=== PATIENT | male | born 1985 | race Caucasian/White ===

== ENCOUNTER 2020-12-19 19:01 | Emergency (ER) | payer BC, SELFPAY ==
[2020-12-19 19:10] VITALS: BP 146/84; PULSE 79; RESP 18; TEMP 36.8; O2SAT 99
--- NOTE | 2020-12-19 19:17 | CTR_ITS ---
PROCEDURE INFORMATION: Exam: CT Abdomen And Pelvis Without Contrast Exam date and time: 12/19/2020 7:17 PM Age: 35 years old Clinical indication: Abdominal pain; Left; Patient HX: C/O L flank pain has HX of stones; Additional info: Left flank pain TECHNIQUE: Imaging protocol: Computed tomography of the abdomen and pelvis without contrast. Radiation optimization: All CT scans at this facility use at least one of these dose optimization techniques: automated exposure control; mA and/or kV adjustment per patient size (includes targeted exams where dose is matched to clinical indication); or iterative reconstruction. COMPARISON: No relevant prior studies available. RADIATION DOSE METRICS: Total DLP (mGy-cm): 451.38 FINDINGS: Liver: Normal. No mass. Gallbladder and bile ducts: Normal. No calcified stones. No ductal dilation. Pancreas: Normal. No ductal dilation. Spleen: Normal. No splenomegaly. Adrenal glands: Normal. No mass. Kidneys and ureters: There is a 2 mm obstructing stone in the left UVJ, resulting in mild hydronephrosis and stranding of the surrounding fat. There is an additional nonobstructing 0.4 cm stone in the left mid kidney. There is also a 0.4 cm rounded density in the left mid kidney, which is too small to characterize, and may represent a complex cyst with proteinaceous/hemorrhagic products. The right kidney is unremarkable. Stomach and bowel: Unremarkable. No obstruction. No mucosal thickening. Appendix: No evidence of appendicitis. Intraperitoneal space: Unremarkable. No free air. No significant fluid collection. Vasculature: Unremarkable. No abdominal aortic aneurysm. Lymph nodes: Unremarkable. No enlarged lymph nodes. Urinary bladder: Unremarkable as visualized. Reproductive: Unremarkable as visualized. Bones/joints: Unremarkable. No acute fracture. Soft tissues: Unremarkable. CT/CT kidney stone 81506 IMPRESSION: Left UVJ obstructing stone, resulting in mild hydronephrosis. COMMENTS: Consistent with the [employer]'s Incidental Findings Committee white paper (J Am Theo Radiol 2018): Any incidental renal lesion less than 1 cm or classified as too small to characterize, or any incidental cystic renal lesion characterized as simple-appearing, is likely benign. No follow-up imaging is recommended for these lesions per consensus recommendations based on imaging criteria. Radiation Dose CTDIVOL = (mGy): DLP = 451.38 (mGy-cm)
--- NOTE | 2020-12-19 19:18 | ED_ITS ---
HPI - Back Pain/Injury General: Chief Complaint: Back Pain/Injury Stated Complaint: Lower Back Pain Time Seen by Provider: 12/19/20 19:16 History of Present Illness: HPI Narrative: 35-year-old male patient comes in with left flank pain. Patient reports some pain waxing and waning for about a week or 2 then today started having some more severe pain. Patient did report emesis at one time. Patient does have a history of renal stones. Last time he passed a stone was about 5 years ago. Patient denies any other chronic medical problems. Review of Systems General: Reports: 10 or more systems reviewed and unremarkable except in HPI and below : Reports: flank pain Physical Exam Const: COMMON NORMALS: no acute distress and patient oriented x3 GENERAL APPEARANCE: cooperative HENMT: COMMON NORMALS: normocephalic and Normal external nose present HEAD & SCALP: normal to inspection and normocephalic NOSE: Normal external nose present MOUTH: Normal oral and palatal mucosa present Eye: GENERAL EYE: appearance normal, both eyes and all related structures Neck/C-Spine: COMMON NORMALS: full ROM Chest: COMMONS NORMALS: normal inspection of the chest Resp: COMMON NORMALS: normal respiratory effort EFFORT & INSPECTION: Yes able to speak in complete sentences Cardio: COMMON NORMALS: regular rate and regular rhythm RATE: regular rate RHYTHM: regular rhythm GI: COMMON NORMALS: Soft to palpation PALPATION: Yes Soft to palpation and Yes Tenderness to palpation present (GI) Details: LUQ : BLADDER/KIDNEY EXAM: Yes CVA tenderness on the left Back/Pelvis: COMMON NORMALS: thoracic and lumbar spine normal to inspection GENERAL BACK: Yes CVA tenderness Extremity: COMMON NORMALS: normal to inspection Neuro: COMMON NORMALS: patient oriented x3 and moves all extremities Psych: COMMON NORMALS: mental status grossly normal and cooperative Skin: COMMON NORMALS: no rashes or lesions noted GENERAL SKIN EXAM: no rashes or lesions noted Course Vital Signs: Vital signs: Vital Signs Temperature 98.3 F 12/19/20 19:10 Pulse Rate 79 12/19/20 19:10 Respiratory Rate 18 12/19/20 19:10 Blood Pressure 146/84 12/19/20 19:10 Pulse Oximetry 99 12/19/20 19:43 MDM - Back Pain/Injury MDM Narrative: Medical decision making narrative: 35-year-old male comes in with left flank pain. Patient states pain on and off for about 2 weeks but suddenly got worse today. Patient also reported the episode of emesis with the pain. On exam patient has some left CVA tenderness and some left lower quadrant abdominal pain. Bowel sounds are present. Vital signs are normal. Differential diagnosis includes renal calculi, diverticulitis, constipation, musculoskeletal pain. Laboratory values note a mild leukocytosis at 10,000, CMP normal except for some mild elevation in glucose at 200. Urine was positive for large amounts of blood. CT of the abdomen pelvis noted a 2 mm stone at the distal ureter. Patient's pain was brought under control with hydromorphone and morphine. Patient was given ondansetron for nausea. Patient be continued on hydrocodone and follow-up with urology for further treatment. Case management request was placed for follow-up with urology for ureter calculi. Lab Data: Labs: Lab Results 12/19/20 12/19/20 12/19/20 Range/Units 19:31 19:31 20:05 WBC 10.5 H (4.0-10.0) 10^3/ uL RBC 4.37 (4.1-5.3) 10^6/u L Hgb 13.7 (11.7-16.6) g/dL Hct 40.3 L (42.0-52.0) % MCV 92.2 (80-94) fl MCH 31.4 (28.0-34.0) pg MCHC 34.0 (30.0-36.0) g/dL RDW 12.1 (12.1-15.1) % Plt Count 341 (130-400) 10^3/c mm MPV 9.4 (7.4-10.4) fL Neut % (Auto) 74.0 % Lymph % (Auto) 17.7 % Blaine % (Auto) 5.6 % Eos % (Auto) 2.2 % Baso % (Auto) 0.2 % Neut # (Auto) 7.74 H (1.8-7.7) 10^3/u L Lymph # (Auto) 1.9 (0.8-4.8) 10^3/u L Blaine # (Auto) 0.6 (0.2-0.9) 10^3/u L Eos # (Auto) 0.2 (0.0-0.8) 10^3/u L Baso # (Auto) 0.0 (0.0-0.1) 10^3/u L Nucleated RBC % (a uto) 0 % Nucleated RBCs # 0.0 /100WBC Sodium 140 (136-145) mmol/L Potassium 3.8 (3.5-5.1) mmol/L Chloride 103 (98-107) mmol/L Carbon Dioxide 24 (22-29) mmol/L Anion Gap 16.8 (5-19) BUN 16 (6-20) mg/dL Creatinine 0.9 (0.7-1.2) mg/dL GFR Calculation 97.2 (90-130) mL/min Glucose 207 H (65-115) mg/dL Calculated Osmolal ity 297 H (285-295) mOsm/k g Calcium 9.5 (8.5-10.5) mg/dL Total Bilirubin 0.4 (0.15-1.2) mg/dL AST 13 (0-40) U/L ALT 18 (0-41) U/L Alkaline Phosphata se 58 (40-130) IU/L Total Protein 6.7 (6.6-8.7) g/dL Albumin 4.4 (3.5-5.2) g/dL Globulin 2.3 (1.3-4.6) g/dL Urine Color Yellow (Yellow) Urine Appearance Clear (CLEAR) Urine pH 5 (5-7) Ur Specific Gravit y 1.020 (1.005-1.030) Urine Protein Neg (Negative) Urine Glucose (UA) 4+ H (Normal) Urine Ketones 1+ H (Negative) Urine Blood 3+ H (Negative) Urine Nitrate Negative (Negative) Urine Bilirubin Neg (Negative) Urine Urobilinogen 1 H (Negative) mg/dL Ur Leukocyte Danna ase Negative (Negative) Urine RBC >100 H (0-2) /hpf Urine WBC 0-4 H (0-5) /hpf Ur Squamous Epith Cells 0-4 H (0-5) /hpf Amorphous Sediment Not Reportable Urine Bacteria 1+ H (NONE) /hpf Urine Yeast Trace /hpf Discharge Plan Discharge Patient Disposition: Home Clinical Impression: Ureter, calculus Condition: Stable Prescriptions: New hydrocodone-acetaminophen 5-325 mg tablet 1 tab PO Q4H PRN (Reason: pain (scale score 7-10)) Qty: 14 RF: 0 ondansetron 4 mg tablet,disintegrating 4 mg PO Q8H PRN (Reason: nausea and vomiting) Qty: 7 RF: 0 tamsulosin 0.4 mg capsule 0.4 mg PO DAILY Qty: 10 RF: 0 Discharge Orders: Discharge ED (Routine); Ordered 12/19/20 Ordered By: Mihai Law Discharge Diet: Usual diet Discharge Activity: Increase activity as tolerated Patient Instructions: Kidney Stones (ED), Opioid Safety Activity Restrictions/Additional Instructions: Take medication as directed. Monitor for fever. If you start running a fever or have uncontrolled pain return to the ER. Follow-up with primary care and/or urologist for further treatment. Case management will contact you regarding a follow-up appointment with the urologist, Dr. Soto. Coding Level of Care Code ED [employer] Teacher for Citlali Fweliel Exam Comprehensive
[2020-12-19 19:39] LABS: Basophils % 0.2 %; Eosinophils # 0.2 10^3/uL (0.0-0.8); Eosinophils % 2.2 %; Hematocrit 40.3 % (42.0-52.0); Hemoglobin 13.7 g/dL (11.7-16.6); Lymphocytes # 1.9 10^3/uL (0.8-4.8); Lymphocytes % 17.7 %; Mean Corpuscular Hemoglobin 31.4 pg (28.0-34.0); Mean Corpuscular Volume 92.2 fl (80-94); Mean Platelet Volume 9.4 fL (7.4-10.4); Monocytes # 0.6 10^3/uL (0.2-0.9); Monocytes % 5.6 %; Neutrophils # 7.74 10^3/uL (1.8-7.7); Nucleated Red Blood Cells % 0 %; Platelet Count 341 10^3/cmm (130-400); Red Blood Count 4.37 10^6/uL (4.1-5.3); Red Cell Distribution Width 12.1 % (12.1-15.1); White Blood Count 10.5 10^3/uL (4.0-10.0)
[2020-12-19 19:43] VITALS: O2SAT 99
[2020-12-19] MEDS: HYDROmorphone 1 mg/mL INJ 1 mL IVP (19:43)
[2020-12-19] MEDS: ondansetron 2 mg/ML SDV 2 mL 4 MG IVP (19:43)
[2020-12-19] MEDS: sodium chloride 0.9% 1,000 ML 999 ML IV (19:50)
[2020-12-19 19:57] LABS: Alanine Aminotransferase 18 U/L (0-41); Albumin Level 4.4 g/dL (3.5-5.2); Alkaline Phosphatase 58 IU/L (40-130); Anion Gap 16.8 (5-19); Aspartate Amino Transferase 13 U/L (0-40); Blood Urea Nitrogen 16 mg/dL (6-20); Calcium 9.5 mg/dL (8.5-10.5); Carbon Dioxide 24 mmol/L (22-29); Chloride 103 mmol/L (98-107); Globulin 2.3 g/dL (1.3-4.6); Glomerular Filtration Rate 97.2 mL/min (90-130); Glucose 207 mg/dL (65-115); Osmolality Calculated 297 mOsm/kg (285-295); Potassium 3.8 mmol/L (3.5-5.1); Sodium 140 mmol/L (136-145); Total Bilirubin 0.4 mg/dL (0.15-1.2); Total Protein 6.7 g/dL (6.6-8.7)
[2020-12-19] MEDS: ketorolac 30 mg/mL INJ 15 MG IVP (20:09)
[2020-12-19 20:17] LABS: Add Urine Microscopic? YES; Bilirubin Urine Neg (Negative); Blood Urine 3+ (Negative); Glucose Urine UA 4+ (Normal); Ketones Urine 1+ (Negative); Leukocyte Esterase Urine Negative (Negative); Nitrate Urine Negative (Negative); Protein Urine Neg (Negative); Urine Appearance Clear (CLEAR); Urine Color Yellow (Yellow); Urobilinogen Urine 1 mg/dL (Negative); pH Urine 5 (5-7)
[2020-12-19 20:28] LABS: Add Urine Culture? Yes; Bacteria Urine 1+ /hpf; RBC Urine >100 /hpf (0-2); Squamous Epithelial Cell Urine 0-4 /hpf (0-5); WBC Urine 0-4 /hpf (0-5)
[2020-12-19] MEDS: morphine 4 mg/mL SDV 1 mL IVP (20:32)
[2020-12-19] MEDS: HYDROcodone-acetaminophen 5-325 mg Tablet 2 TAB PO (20:41)
[2020-12-19 20:43] VITALS: PULSE 77; RESP 16; O2SAT 99
--- NOTE | 2020-12-21 10:56 | DCPLANNER ---
army manager had message to schedule a follow up appointment for patient with Dr. Soto. army manager called the office of Dr. Soto, spoke with Parth, gave clinic patients information. army manager was told that patients information would be printed and reviewed. Clinic will call patient with appointment information.
--- NOTE | 2020-12-22 15:01 | DCPLANNER ---
Patient has a follow up appointment scheduled for Tuesday, December 22, [address] at 4:[address] Soto. Clinic will call patient with appointment information.
--- NOTE | 2020-12-24 08:41 | DCPLANNER ---
Patient had a follow up appointment scheduled for 12.22.[address] Soto - patient did attend appointment.
== END 2020-12-19 20:48 | disposition home or self-care (01) ==
PROVIDERS: Emergency Provider Nurse Practitioner Family
DX: N20.1 Calculus of ureter (principal)
CPT/HCPCS: 74176; 80053; 81001; 85025; 87086; 96361; 96374; 96375; 99284; J1170; J1885; J2270; J2405; J7030

== ENCOUNTER 2020-12-22 15:11 | Outpatient (CLI) | payer BC, SELFPAY ==
--- NOTE | 2020-12-22 15:00 | XR_ITS ---
WS: [id number] KUB, AP view, 12/22/2020 Clinical Data: STONES Comparison: CT abdomen and pelvis, 12/19/2020. Findings: No abnormal intraabdominal masses or calcifications are seen. There is no dilatated small bowel or ev idence of obstruction. The left renal calculus and left UVJ calculus visualized on the CT scan are not seen on this examinat ion. XR/XR KUB [id number] Impression: Negative KUB.
== END 2020-12-22 15:12 | disposition home or self-care (01) ==
LOC: RAD 15:17
PROVIDERS: PCP Nurse Practitioner Family; Visit Provider Urology
DX: N20.1 Calculus of ureter (principal)
CPT/HCPCS: 74018; 81003

== ENCOUNTER 2020-12-30 14:38 | Outpatient (CLI) | payer BC, SELFPAY ==
--- NOTE | 2020-12-30 14:44 | XR_ITS ---
WS: [id number] Exam: XR KUB [id number] Date/Time of Exam: 12/30/2020 2:52 PM Reason For Exam: renal stone No bowel obstruction or free air. No calcifications seen in the region of the kidneys. No sign of org an enlargement. Regional bony structures appear normal. XR/XR KUB [id number] IMPRESSION: 1. No acute abdominal finding.
== END 2020-12-30 14:39 | disposition home or self-care (01) ==
LOC: RAD 14:43
PROVIDERS: PCP Nurse Practitioner Family; Visit Provider Urology
DX: N20.0 Calculus of kidney (principal)
CPT/HCPCS: 74018; 81003

== ENCOUNTER 2021-02-19 12:47 | Emergency (ER) | payer BC, SELFPAY ==
[2021-02-19 13:20] VITALS: BP 153/90; PULSE 88; RESP 16; TEMP 36.8; O2SAT 100
--- NOTE | 2021-02-19 13:42 | XR_ITS ---
WS: [id number] Exam: XR hand LT min 3V* [id number] Date/Time of Exam: 02/19/2021 1:42 PM Reason For Exam: framing nail in left hand A metallic foreign body resembling that of a nail is identified extending through the distal thumb me tacarpal into the adjacent soft tissues. No fracture is seen. Remaining aspects the left hand appear normal. XR/XR hand LT min 3V* [id number] IMPRESSION: 1. Metallic foreign body resembling that of a nail extending through the distal end of the thumb metacarpal into the soft tissues.
[2021-02-19 15:22] VITALS: RESP 18
[2021-02-19] MEDS: morphine 4 mg/mL SDV 1 mL IVP (15:22)
[2021-02-19] MEDS: ondansetron 2 mg/ML SDV 2 mL 4 MG IVP ×3 (15:22→18:22)
--- NOTE | 2021-02-19 16:40 | ED_ITS ---
Documented by User: ARUNA Larry 02/19/21 16:42 HPI - Wound/Laceration General: Chief Complaint: Wound/Laceration Stated Complaint: Nail in Left Hand Time Seen by Provider: 02/19/21 13:42 History of Present Illness: HPI narrative: Patient presents with framing nail in the left thumb. This occurred minutes ago while patient was at work using a framing nailing gun. Patient complains about discomfort to left thumb. Onset (ago): minute(s) Extremity Location: Left: hand Place: work Patient tetanus UTD: Yes Context: accidental Associated symptoms: Reports no associated symptoms; Denies chills or fever(s) Review of Systems Const: Denies: fever(s) or chills Resp: Denies: dyspnea Musc: Reports: extremity pain (Left thumb) Skin/Breast: Reports: other (Patient has a nail protruding from his left thumb, head and now only) [facility] ED PFSH: Medical History Left renal stone Family History Father Healthy adult Mother Healthy adult Social History Alcohol intake: current Alcohol intake frequency: holidays/special occasions only Marital status: Legally Current occupational status: employed History of recent travel: No Physical Exam Const: COMMON NORMALS: no acute distress GENERAL APPEARANCE: cooperative Extremity: LEFT UPPER EXTREMITY: Yes hand & digits (3 inch framing nail with habit protruding from left thumb.) Left hand and digits: Yes ROM (Decreased due to wearing Emi) and Yes neurovascular exam (Intact) Skin: OTHER: Nail protruding from left thumb with no bleeding. Dorsal surface. Course Vital Signs: Vital signs: Vital Signs Temperature 98.2 F 02/19/21 13:20 Pulse Rate 81 02/19/21 19:28 Respiratory Rate 18 02/19/21 18:31 Blood Pressure 137/84 02/19/21 19:28 Pulse Oximetry 98 02/19/21 19:28 Discharge Plan Discharge Patient Disposition: Home Clinical Impression: Foreign body finger Condition: Stable Prescriptions: New hydrocodone-acetaminophen 5-325 mg tablet 1 tab PO TID PRN (Reason: pain) Qty: 14 RF: 0 cephalexin 500 mg capsule 500 mg PO Q8H 7 Days Qty: 21 RF: 0 No Action ibuprofen 200 mg tablet 800 mg PO Q6H PRNRF: 0 hydrocodone-acetaminophen 5-325 mg tablet 1 tab PO Q4H PRN (Reason: pain (scale score 7-10)) Qty: 14 RF: 0 ondansetron 4 mg tablet,disintegrating 4 mg PO Q8H PRN (Reason: nausea and vomiting) Qty: 7 RF: 0 tamsulosin 0.4 mg capsule 0.4 mg PO DAILY Qty: 10 RF: 0 Discharge Orders: Discharge ED (Routine); Ordered 02/19/21 Ordered By: Meg Berman Referrals: Cheo Mills DO [Physician] - 1-3 days Stallings,CHRISTOPH Poe [Primary Care Provider] - Discharge Diet: Usual diet Discharge Activity: Increase activity as tolerated Patient Instructions: Soft Tissue Foreign Body (ED), Puncture Wound (ED), Opioid Safety Activity Restrictions/Additional Instructions: Watch for signs symptoms of infection such as redness, swelling, foul drainage. Apply ice to area to help with discomfort. Take medications as directed and as needed. Follow-up with Ortho as scheduled by the hospital. Coding Level of Care Code ED Pierogi Maker for Chg Fwd Exam Expanded Problem Focused Documented by User: Meg Berman MD 02/19/21 18:44 HPI - Wound/Laceration General: Chief Complaint: Wound/Laceration Stated Complaint: Nail in Left Hand Time Seen by Provider: 02/19/21 13:42 [facility] ED PFSH: Medical History Left renal stone Family History Father Healthy adult Mother Healthy adult Social History Alcohol intake: current Alcohol intake frequency: holidays/special occasions only Marital status: Legally Current occupational status: employed History of recent travel: No Procedures Foreign Body Removal Time Out Performed: yes Site: left and hand Description of foreign body: other (Nail) Sedation/Analgesia: propofol Technique: manual removal Confirmed by:: direct visualization and radiograph Complications: none Post-procedure exam: awake, alert Neurovascular: normal distal pulse, normal capillary fill, distal motor function normal, no signs of compartment syndrome and no change from pre-procedure Procedural Sedation Indication: other (Foreign body removal) ASA Class: I Time of Last PO Intake: 14:43 Preparation: library monitor applied, pulse oximeter and supplemental O2 applied IV Propofol dose (mg): 100 Complications: none Course Vital Signs: Vital signs: Vital Signs Temperature 98.2 F 02/19/21 13:20 Pulse Rate 81 02/19/21 19:28 Respiratory Rate 18 02/19/21 18:31 Blood Pressure 137/84 02/19/21 19:28 Pulse Oximetry 98 02/19/21 19:28 MDM - Wound/Laceration MDM Narrative: Medical decision making narrative: Patient presents with foreign body in his left hand was able to successfully remove the foreign body post x-ray is normal patient placed in a thumb spica he is to follow-up with orthopedics will place him on antibiotics did give him return instructions including any signs of infection he understands agrees to plan. Discharge Plan Discharge Patient Disposition: Home Clinical Impression: Foreign body finger Condition: Stable Prescriptions: New hydrocodone-acetaminophen 5-325 mg tablet 1 tab PO TID PRN (Reason: pain) Qty: 14 RF: 0 cephalexin 500 mg capsule 500 mg PO Q8H 7 Days Qty: 21 RF: 0 No Action ibuprofen 200 mg tablet 800 mg PO Q6H PRNRF: 0 hydrocodone-acetaminophen 5-325 mg tablet 1 tab PO Q4H PRN (Reason: pain (scale score 7-10)) Qty: 14 RF: 0 ondansetron 4 mg tablet,disintegrating 4 mg PO Q8H PRN (Reason: nausea and vomiting) Qty: 7 RF: 0 tamsulosin 0.4 mg capsule 0.4 mg PO DAILY Qty: 10 RF: 0 Discharge Orders: Discharge ED (Routine); Ordered 02/19/21 Ordered By: Meg Berman Referrals: Cheo Mills DO [Physician] - 1-3 days Stallings,CHRISTOPH Poe [Primary Care Provider] - Discharge Diet: Usual diet Discharge Activity: Increase activity as tolerated Patient Instructions: Soft Tissue Foreign Body (ED), Puncture Wound (ED), Opioid Safety Activity Restrictions/Additional Instructions: Watch for signs symptoms of infection such as redness, swelling, foul drainage. Apply ice to area to help with discomfort. Take medications as directed and as needed. Follow-up with Ortho as scheduled by the hospital. Coding Level of Care Code ED Pierogi Maker for Chg Fwd Exam Expanded Problem Focused Documented by User: Ambrosio Zendejas DO 02/22/21 06:39 HPI - Wound/Laceration General: Chief Complaint: Wound/Laceration Stated Complaint: Nail in Left Hand Time Seen by Provider: 02/19/21 13:42 PFSH ED PFSH: Medical History Left renal stone Family History Father Healthy adult Mother Healthy adult Social History Alcohol intake: current Alcohol intake frequency: holidays/special occasions only Marital status: Legally Current occupational status: employed History of recent travel: No Course Vital Signs: Vital signs: Vital Signs Temperature 98.2 F 02/19/21 13:20 Pulse Rate 81 02/19/21 19:28 Respiratory Rate 18 02/19/21 18:31 Blood Pressure 137/84 02/19/21 19:28 Pulse Oximetry 98 02/19/21 19:28 MDM - Wound/Laceration MDM Narrative: Medical decision making narrative: Chart reviewed and patient discussed with midlevel. Agree with assessment and plan. Discharge Plan Discharge Patient Disposition: Home Clinical Impression: Foreign body finger Condition: Stable Prescriptions: New hydrocodone-acetaminophen 5-325 mg tablet 1 tab PO TID PRN (Reason: pain) Qty: 14 RF: 0 cephalexin 500 mg capsule 500 mg PO Q8H 7 Days Qty: 21 RF: 0 No Action ibuprofen 200 mg tablet 800 mg PO Q6H PRNRF: 0 hydrocodone-acetaminophen 5-325 mg tablet 1 tab PO Q4H PRN (Reason: pain (scale score 7-10)) Qty: 14 RF: 0 ondansetron 4 mg tablet,disintegrating 4 mg PO Q8H PRN (Reason: nausea and vomiting) Qty: 7 RF: 0 tamsulosin 0.4 mg capsule 0.4 mg PO DAILY Qty: 10 RF: 0 Discharge Orders: Discharge ED (Routine); Ordered 02/19/21 Ordered By: Meg Berman Referrals: Cheo Mills DO [Physician] - 1-3 days Stallings,CHRISTOPH Poe [Primary Care Provider] - Discharge Diet: Usual diet Discharge Activity: Increase activity as tolerated Patient Instructions: Soft Tissue Foreign Body (ED), Puncture Wound (ED), Opioid Safety Activity Restrictions/Additional Instructions: Watch for signs symptoms of infection such as redness, swelling, foul drainage. Apply ice to area to help with discomfort. Take medications as directed and as needed. Follow-up with Ortho as scheduled by the hospital. Coding Level of Care Code ED Pierogi Maker for Citlali Fwd Exam Expanded Problem Focused
[2021-02-19] MEDS: sodium chloride 0.9% 1,000 ML 125 ML IV (18:04)
[2021-02-19] MEDS: cefTRIAXone 1,000 MG in sodium chloride 0.9% (plus) 50 ML 100 MG IV (18:04)
--- NOTE | 2021-02-19 18:04 | W.ED.WOUNDLC ---
HPI - Wound/Laceration General: Chief Complaint: Wound/Laceration Stated Complaint: Nail in Left Hand Time Seen by Provider: 02/19/21 13:42 History of Present Illness: HPI narrative: Patient is a 35-year-old male here with a thumb through his left hand. Says happens prior to arrival he was at work pain is mild does not have any medicines prior to arrival. Unclear if he is up-to-date on tetanus Denies fevers chills chest pain nausea vomiting diarrhea altered mental status or syncope. Place: work Review of Systems General: Reports: 10 or more systems reviewed and unremarkable except in HPI and below PFS ED PFS: Medical History Left renal stone Family History Father Healthy adult Mother Healthy adult Social History Alcohol intake: current Alcohol intake frequency: holidays/special occasions only Marital status: Legally Current occupational status: employed History of recent travel: No Physical Exam Const: COMMON NORMALS: no acute distress, average body habitus and patient oriented x3 Eye: COMMON NORMALS: Equal, round and reactive pupils present and EOMs intact bilaterally PUPIL: Yes Equal, round and reactive pupils present Neck/C-Spine: COMMON NORMALS: no JVD Resp: COMMON NORMALS: normal respiratory effort Cardio: COMMON NORMALS: no JVD, regular rate and regular rhythm RATE: regular rate RHYTHM: regular rhythm Extremity: COMMON NORMALS: normal to inspection and full ROM NARRATIVE EXTREMITY EXAM: Patient has a nail sticking out of the base of the left thumb proximal to the MCP. No bleeding. No erythema. Neuro: COMMON NORMALS: patient oriented x3, CN's II-XII intact bilaterally and moves all extremities Psych: COMMON NORMALS: mental status grossly normal Skin: COMMON NORMALS: no rashes or lesions noted GENERAL SKIN EXAM: no rashes or lesions noted Course ED course: We will sedate the patient using ketamine did discuss the risks and benefits including risks of emergence reaction prolonged sedation Vital Signs: Vital signs: Vital Signs Temperature 98.2 F 02/19/21 13:20 Pulse Rate 86 02/19/21 18:31 Respiratory Rate 18 02/19/21 18:31 Blood Pressure 127/74 02/19/21 18:31 Pulse Oximetry 95 02/19/21 18:31 Discharge Plan Discharge Patient Disposition: Home Clinical Impression: Foreign body finger Condition: Stable Prescriptions: New hydrocodone-acetaminophen 5-325 mg tablet 1 tab PO TID PRN (Reason: pain) Qty: 14 RF: 0 cephalexin 500 mg capsule 500 mg PO Q8H 7 Days Qty: 21 RF: 0 No Action ibuprofen 200 mg tablet 800 mg PO Q6H PRNRF: 0 hydrocodone-acetaminophen 5-325 mg tablet 1 tab PO Q4H PRN (Reason: pain (scale score 7-10)) Qty: 14 RF: 0 ondansetron 4 mg tablet,disintegrating 4 mg PO Q8H PRN (Reason: nausea and vomiting) Qty: 7 RF: 0 tamsulosin 0.4 mg capsule 0.4 mg PO DAILY Qty: 10 RF: 0 Discharge Orders: Discharge ED (Routine); Ordered 02/19/21 Ordered By: Meg Berman Referrals: Cheo Mills DO [Physician] - 1-3 days Stallings,CHRISTOPH Poe [Primary Care Provider] - Discharge Diet: Usual diet Discharge Activity: Increase activity as tolerated Patient Instructions: Soft Tissue Foreign Body (ED), Puncture Wound (ED), Opioid Safety Activity Restrictions/Additional Instructions: Watch for signs symptoms of infection such as redness, swelling, foul drainage. Apply ice to area to help with discomfort. Take medications as directed and as needed. Follow-up with Ortho as scheduled by the hospital. Coding Level of Care Code ED Licensing Services Clerk for Citlali Fweliel Exam Comprehensive
[2021-02-19 18:15] VITALS: RESP 18
[2021-02-19] MEDS: morphine 4 mg/mL SDV 1 mL 6 MG IVP (18:15)
[2021-02-19] MEDS: lidocaine 1% INJ 20 mL INTRADERMA (18:15)
[2021-02-19 18:19] VITALS: BP 150/88; PULSE 84; RESP 18; O2SAT 99
[2021-02-19] MEDS: propofol 10 mg/mL SDV 20 mL 40.8 MG IVP (18:25)
--- NOTE | 2021-02-19 18:25 | XRR_ITS ---
PROCEDURE INFORMATION: Exam: XR Left Hand Exam date and time: 02/19/2021 6:25 PM Age: 35 years old Clinical indication: Other: Fb removal; Additional info: Pain/fb removal TECHNIQUE: Imaging protocol: XR Left hand. Views: 3 or more views. COMPARISON: No relevant prior studies available. FINDINGS: Bones/joints: The bones are intact and in normal alignment. Soft tissues: No radiopaque foreign body visualized. Make an 1. No acute finding. Other findings: Bandage material overlying the left thumb. XR/XR hand LT min 3V* [id number] IMPRESSION: 1. No acute finding. Radiation Dose CTDIVOL = (mGy): DLP = (mGy-cm)
[2021-02-19 18:31] VITALS: BP 127/74; PULSE 86; RESP 18; O2SAT 95
[2021-02-19 19:28] VITALS: BP 137/84; PULSE 81; O2SAT 98
--- NOTE | 2021-02-20 06:52 | PC.NURSE ---
Late entry: Propofol pulled from pyxis by Karissa Fair RN. Drawn up by MARIAELENA Berman. ERP administers 40mg of propofol. A few moments later, ERP administers 60mg of propofol. Unable to place order at this time as it is post shift.
[2021-02-20] MEDS: propofol 10 mg/mL SDV 20 mL 59.2 MG IVP (07:20)
--- NOTE | 2021-02-22 09:33 | DCPLANNER ---
critical care unit manager had message to schedule a follow up appointment for patient with ortho. critical care unit manager called the ortho clinic, spoke with Goldie, gave clinic patients information. critical care unit manager was told that patients information would be printed and reviewed. Clinic will call patient with appointment information.
== END 2021-02-19 19:22 | disposition home or self-care (01) ==
PROVIDERS: Emergency Provider Emergency Medicine; PCP Nurse Practitioner Family
DX: S61.042A Puncture wound with foreign body of left thumb without damage to nail, initial encounter (principal); W29.4XXA Contact with nail gun, initial encounter
CPT/HCPCS: 73130; 96361; 96365; 96372; 96375; 96376; 99284; J0696; J2270; J2405; J2704; J7030

== ENCOUNTER 2021-09-15 09:22 | Outpatient (CLI) | payer BC, SELFPAY ==
--- NOTE | 2021-09-15 09:29 | XR_ITS ---
WS: [id number] KUB, AP view, 09/15/2021 Clinical Data: Kidney Stone Comparison: KUB, 12/30/2020. Findings: No abnormal intraabdominal masses or calcifications are seen. There is no dilatated small bowel or ev idence of obstruction. XR/XR KUB [id number] Impression: Negative KUB.
== END 2021-09-15 09:23 | disposition home or self-care (01) ==
LOC: RAD 09:24
PROVIDERS: PCP Nurse Practitioner Family; Visit Provider Nurse Practitioner Family
DX: N20.0 Calculus of kidney (principal)
CPT/HCPCS: 74018; 81003

== ENCOUNTER 2021-09-27 09:54 | Outpatient (CLI) | payer BC, SELFPAY ==
--- NOTE | 2021-09-27 10:00 | XR_ITS ---
WS: [id number] XR KUB [id number] REASON FOR EXAM: Kidney Stone FINDINGS: Presumed mid to distal left ureteral calculus again identified. Inferior to the level noted on 022. Now midway between the left transverse processes of L4 and L5. No other new finding or interval change. No acute abnormality. XR/XR KUB [id number] IMPRESSION: Distal migration of presumed left ureteral calculus as above.
== END 2021-09-27 09:55 | disposition home or self-care (01) ==
LOC: RAD 09:55
PROVIDERS: PCP Nurse Practitioner Family; Visit Provider Nurse Practitioner Family
DX: N20.0 Calculus of kidney (principal)
CPT/HCPCS: 74018

== ENCOUNTER 2021-09-29 09:02 | Day surgery (SDC) | payer BC, SELFPAY ==
[2021-09-28 09:20] VITALS: BMI 22.1
[2021-09-29] VITALS (11 sets, daily range): BP systolic 106–128; BP diastolic 57–80; PULSE 62–84; RESP 13–24; TEMP 36.1–36.7; O2SAT 93–100
--- NOTE | 2021-09-29 | SCC_ITS ---
Procedure done: 1. Cystoscopy, left retrograde ureteropyelogram 2. LEFT: Ureteroscopy, laser, stent 50.2 seconds of fluoroscopic guidance, for a cumulative dose of 12.94 mGy, was provided to Dr. Soto by the radiology department. C-arm images of the abdomen were saved for the patient's permanent record. [facility]
--- NOTE | 2021-09-29 09:05 | SC_ITS ---
WS: [id number] INTRAOPERATIVE TECHNIQUE: 4 Spot fluoroscopic images for intraoperative purposes. FLUOROSCOPY TIME: 50.2 seconds CLINICAL INFORMATION: Left ureteroscopy FINDINGS: LEFT ureteroscopy with LEFT double-J ureteral stent. Filling defect LEFT L4 level compatible with pre viously described ureteral calculus SC/C-arm FL for Urology IMPRESSION: Images obtained for intraoperative purposes.
[2021-09-29] MEDS: sodium chloride 0.9% 1,000 ML 30 ML IV (09:28)
--- NOTE | 2021-09-29 09:38 | ANES.PREANE2 ---
Pre-Anesthetic Assessment Height/Weight: Height 1.96 m Weight 84.822 kg Temp Pulse Resp BP Pulse Ox 98.1 F 76 18 128/80 96 09/29/21 09:17 09/29/21 09:17 09/29/21 09:17 09/29/21 09:17 09/29/21 09:17 Preop Diagnosis: Refractory left renal colic secondary to left ureteral stone Operation Date: 09/29/21 09:05 Proposed Procedures p CYSTOSCOPY LEFT RETROGRADE URETEROSCOPY LASER STENT 72742 [id number] MODIFIER 26, N20.10(Not Applicable) - Wan Soto MD s Retrograde Pyelogram(Left) - MD marleen Hdz Ureteroscopy(Left) - MD marleen Hdz Laser Lithotripsy(Left) - Wan Soto MD s Ureteral Stent Placement(Left) - Wan Soto MD Familial anesthetic complications: None Was Beta Rafael taken within 24 hours: N/A Was Clonidine taken within 24 hours: N/A Last intake: Intake Last Liquid Date 09/28/21 Last Liquid Time 00:00 Last Solid Date 09/28/21 Last Solid Time 20:00 Social Tobacco Exam alert, oriented x 3, clear to auscultation bilaterally and regular rate & rhythm murmur Airway Mallampati: Class II Dentition: full CV/HEM > 4 METS, no functional limitations GI kidney stones Anesthetic Plan ASA status: 2 Anesthesia: General Risk of > 500 ml blood loss (7ml/kg in children): No Other Pertinent Information Hx rheumatic fever Medications/Allergies Home Medications Medication Instructions Recorded Confirmed Last Taken Type ibuprofen 200 mg tablet 800 mg PO Q6H PRN tab 12/22/20 09/29/21 Unknown History hydrocodone 5 mg-acetaminophen 325 1 tab PO Q6H PRN 2 Days #8 tab 09/15/21 09/29/21 09/28/21 Rx mg tablet 0000 ondansetron 4 mg disintegrating 4 mg PO Q8H PRN #8 tab 09/15/21 09/29/21 09/28/21 Rx tablet tamsulosin 0.4 mg capsule 0.4 mg PO DAILY #30 cap 09/15/21 09/29/21 09/27/21 Rx tramadol 50 mg tablet 50 mg PO BID PRN 09/27/21 09/29/21 09/27/21 History pantoprazole 40 mg tablet,delayed 40 mg PO DAILY 09/28/21 09/29/21 09/28/21 History release Allergies Allergy/AdvReac Type Severity Reaction Status Date / Time No Known Allergies Allergy Verified 09/28/21 09:18 Current Medications Generic Name Dose Route Start Last Admin Trade Name Rylandq PRN Reason Stop Dose Admin Sodium Chloride 1,000 mls @ 30 mls/hr 09/29/21 09:15 09/29/21 09:28 Sodium Chloride 0.9% IV 09/30/21 09:14 30 mls/hr .Q24H ZEINAB Administration PFSH Anesthesia Medical History Left renal stone Family History Father Healthy adult Mother Healthy adult Social History Smoking and tobacco status: current every day smoker Alcohol intake: current Alcohol intake frequency: few times a month Marital status: Life Partner Current occupational status: employed History of recent travel: No Data Anesthesia Cardiac Studies: No Data to Display
--- NOTE | 2021-09-29 09:49 | P.HPUD_ITS ---
Surgery/Procedure H&P Update DATE OF PROCEDURE: September 29, 2021 DATE H&P PERFORMED: 09/27/21 H&P UPDATE INFORMATION: I have reviewed H&P completed within last 30 days, I have examined patient prior to procedure, No changes to prior documentation and H&P is in [facility] [place] on date indicated PREOP DIAGNOSIS: Refractory left renal colic secondary to left ureteral stone PLANNED PROCEDURE: Operation Date: 09/29/21 09:05 Proposed Procedures p CYSTOSCOPY LEFT RETROGRADE URETEROSCOPY LASER STENT 83738 [id number] MODIFIER 26, N20.10(Not Applicable) - Wan Soto MD s Retrograde Pyelogram(Left) - MD marleen Hdz Ureteroscopy(Left) - MD marleen Hdz Laser Lithotripsy(Left) - MD marleen Hdz Ureteral Stent Placement(Left) - Wan Soto MD
--- NOTE | 2021-09-29 10:03 | PM.OP ---
Operative Report Date of procedure: September 29, 2021 Pre-op diagnosis: Refractory left renal colic secondary to left ureteral stone Post-op diagnosis: Refractory left renal colic secondary to left ureteral stone Procedure done: 1. Cystoscopy, left retrograde ureteropyelogram 2. LEFT: Ureteroscopy, laser, stent Implants: Left ureteral stent Specimens removed/disposition: None Pathology: None Surgeon: Charles Anesthesia: General Estimated blood loss: Minimal Urine output: Not measured Complications: None Findings: Stone was in the expected position. No other stones were seen in the ureter. Easily accessed with ureteroscopy and fragmented with laser. Stent left indwelling. Fragmented into sand. Pieces were so small they were impossible to collect. Brief History: Guero is a delightful 36-year-old white male with a history of stones including spontaneous passage previously. Recently presented with left renal colicky symptoms. There was a calcification in his mid ureter on KUB that had been previously noted up in the kidney. He initially elected conservative management but failed to pass the stone and continued with intermittent severe pain. The stone did make some progress distally but not dramatically at time of surgical scheduling. On the day of the procedure he was still having some discomfort. He had not seen a stone pass. Procedure: Ureter After routine preoperative evaluation examination and obtaining of informed consent he was taken to the operating suite on 09/29/2021 where general anesthesia was administered without difficulty after appropriate timeout was performed, SCDs confirmed to be functioning, preoperative antibiotics administered, beta-issac protocol confirmed. Prepped and draped in the usual sterile fashion in dorsolithotomy position paying careful attention to avoiding pressure points. 21 Malaysian cystoscope with 30 degree lens was introduced into the urethra meatus and advanced into the bladder under videoscopy. The bladder was systematically examined and found to be within normal limits. No stone was seen. An 8 Malaysian cone-tip catheter was intubated into the left ureteral orifice for left retrograde ureteropyelogram demonstrating: Normal course and caliber of the distal ureter. Filling defect consistent with a stone was located at the junction of L3-L4. Ureter proximal to that point was mildly dilated. A flexible tip guidewire was then easily advanced up the left ureter bypassing the stone curling in the area of the upper pole calyx. The distal ureter was then dilated with a 15 Malaysian 4 cm balloon with no waist. The wire was secured to the drapes as a safety wire. A 7.5 Malaysian offset semirigid ureteroscope was then advanced next to the wire up the ureter and the stone was encountered in its expected position. A 200 ?m thulium superpulse laser fiber was then utilized to fragment the stone into sand-like particles. No residual particles larger than the tip of the fiber were identified at the completion of the procedure. Scope was passed proximally and no migration of fragments noted. Scope was then withdrawn some of the sand/debris were flushed out. The ureter was in good shape with some inflammatory changes in the distal ureter from dilation. It was decided to leave a stent indwelling. The cystoscope was then backloaded over the safety wire and a 6 Malaysian by 28 cm double-pigtail stent without string was advanced over the guidewire through the cystoscope into appropriate position as confirmed via fluoroscopy and cystoscopy Stent was confirmed to be draining. Bladder drained and the procedure was completed. He tolerated procedure well without complications and was awakened in the operating room and returned to the recovery room in stable condition. PLANS: 1. Anticipate discharge from outpatient surgery 2. Follow-up: Next week for stent removal.
[2021-09-29] MEDS: levofloxacin-dextrose 5 % 500 MG/100 ML PREMIX 100 MG IV (10:08)
[2021-09-29] MEDS: iohexol 300 mg/mL 50 mL Btl (OR ONLY) XX (10:35)
[2021-09-29] MEDS: ondansetron 2 mg/ML SDV 2 mL 4 MG IVP (12:09)
[2021-09-29] MEDS: HYDROcodone-acetaminophen 5-325 mg Tablet 1 TAB PO (12:18)
--- NOTE | 2021-09-29 13:44 | ANE.PACU2 ---
Inpatient post-anesthesia follow up: Airway intact: Yes Vital signs: Temperature 97.0 F Pulse Rate 63 Respiratory Rate 16 Blood Pressure 127/76 Pulse Oximetry 97 Oxygen Delivery Me thod Room Air Oxygen Flow Rate 8 Fraction of Inspir ed Oxygen Hydration adequate: Yes Nausea and vomiting: No Pain level: 1 Mental status: Baseline
== END 2021-09-29 12:40 | disposition home or self-care (01) ==
PROVIDERS: PCP Nurse Practitioner Family; Visit Provider Urology
PROC: 0TJB8ZZ Inspection of Bladder, Via Natural or Artificial Opening Endoscopic (ICD-10-PCS; CPT 52000; principal; 2021-09-29 08:55)
PROC: (CPT 74420; 2021-09-29 08:55)
PROC: 0TJ98ZZ Inspection of Ureter, Via Natural or Artificial Opening Endoscopic (ICD-10-PCS; CPT 52351; 2021-09-29 08:55)
PROC: (CPT 52356; 2021-09-29 08:55)
PROC: (CPT 50605; 2021-09-29 08:55)
DX: N20.1 Calculus of ureter (principal); F17.210 Nicotine dependence, cigarettes, uncomplicated
CPT/HCPCS: 52356; 76000; C2625; J0330; J1100; J1885; J1956; J2250; J2405; J2704; J2710; J3010; J3490; J7030

== ENCOUNTER → 2021-10-07 15:30 | Outpatient (BNVA) | payer BC, SELFPAY | PROVIDERS: PCP Nurse Practitioner Family; Visit Provider Urology | DX: N20.0 Calculus of kidney (principal); N20.1 Calculus of ureter; Z96.0 Presence of urogenital implants | CPT/HCPCS: 81003 ==

== ENCOUNTER 2022-04-12 12:06 | Outpatient (CLI) | payer BC, SELFPAY ==
--- NOTE | 2022-04-12 12:44 | XR_ITS ---
WS: [id number] XR KUB [id number] REASON FOR EXAM: Renal Stone FINDINGS: No urinary tract calculi are identified. The remainder of the abdomen is unremarkable. XR/XR KUB [id number] IMPRESSION: No urinary tract calculi identified.
== END 2022-04-12 12:07 | disposition home or self-care (01) ==
PROVIDERS: PCP Nurse Practitioner Family; Visit Provider Urology
DX: N20.0 Calculus of kidney (principal)
CPT/HCPCS: 74018; 81003

== ENCOUNTER 2023-03-16 07:48 | Day surgery (SDC) | payer BC, SELFPAY ==
--- NOTE | 2023-03-16 07:35 | W.PM.OPSUD ---
Surgery/Procedure H&P Update DATE OF PROCEDURE: March 16, 2023 DATE H&P PERFORMED: 03/10/23 PLANNED PROCEDURE: Operation Date: 03/16/23 08:35 Proposed Procedures p : 82316 egd R10.9(Not Applicable) - Jonathan Castle MD
[2023-03-16 08:01] VITALS: BP 147/85; PULSE 76; RESP 18; TEMP 36.8; O2SAT 98; BMI 31.0
--- NOTE | 2023-03-16 08:09 | P.ANESASSM_ITS ---
Pre-Anesthetic Assessment Height/Weight: Height 1.7 m Weight 89.811 kg Temp Pulse Resp BP Pulse Ox O2 Del Method 98.3 F 76 18 147/85 98 Room Air 03/16/23 08:01 03/16/23 08:01 03/16/23 08:01 03/16/23 08:01 03/16/23 08:01 03/16/23 08:01 Operation Date: 03/16/23 08:35 Proposed Procedures p : 85659 egd R10.9(Not Applicable) - Jonathan Castle MD Familial anesthetic complications: none Was Beta Rafael taken within 24 hours: N/A Was Clonidine taken within 24 hours: N/A Last intake: Intake Last Liquid Date 03/15/23 Last Liquid Time 22:30 Last Solid Date 03/15/23 Last Solid Time 19:30 Social Tobacco and No alcohol Exam alert, oriented x 3, clear to auscultation bilaterally and regular rate & rhythm Airway Mallampati: Class II Dentition: full GI Gastroesophageal Reflux Disease Anesthetic Plan ASA status: 2 Anesthesia: MAC Other Pertinent Information hx rheumatic fever Medications/Allergies Home Medications Medication Instructions Recorded Confirmed Last Taken Type pantoprazole 40 mg tablet,delayed 40 mg PO DAILY 09/28/21 03/14/23 03/14/23 History release acetaminophen 325 mg tablet 650 mg PO QID PRN Pain 03/14/23 03/14/23 03/13/23 History (Tylenol) Allergies Allergy/AdvReac Type Severity Reaction Status Date / Time No Known Allergies Allergy Verified 03/14/23 09:40 [facility] Anesthesia Medical History (Updated 03/10/23 @ 09:05 by Jonathan Castle MD) Urolithiasis History of 2 left-sided stones in 2020 and the second in 2021. The first 1 passed spontaneously and the second required endoscopic laser lithotripsy with temporary stent. No other stones seen on CT scan Left renal stone Surgical History (Updated 03/10/23 @ 08:41 by Jonathan Castle MD) Hx of vasectomy Status post laser lithotripsy of ureteral calculus Family History Father Healthy adult Mother Healthy adult Social History Smoking and tobacco/nicotine status: current every day tobacco/nicotine user Alcohol intake: current Alcohol intake frequency: few times a month Substance/Drug Use: never Marital status: Life Partner Current occupational status: employed Data Anesthesia Cardiac Studies: No Data to Display
[2023-03-16] MEDS: sodium chloride 0.9% 1,000 ML 30 ML IV (08:14)
[2023-03-16 09:07] VITALS: BP 115/66; PULSE 92; RESP 16; TEMP 36.2; O2SAT 95
[2023-03-16 09:19] VITALS: BP 118/74; PULSE 85; RESP 16; O2SAT 97
--- NOTE | 2023-03-16 13:12 | ANE.PACU2 ---
Inpatient post-anesthesia follow up: Airway intact: Yes Vital signs: Temperature 97.1 F Pulse Rate 85 Respiratory Rate 16 Blood Pressure 118/74 Pulse Oximetry 97 Oxygen Delivery Me thod Room Air Oxygen Flow Rate Fraction of Inspir ed Oxygen Hydration adequate: Yes Nausea and vomiting: No Pain level: 1 Mental status: Baseline
== END 2023-03-16 09:32 | disposition home or self-care (01) ==
PROVIDERS: PCP Nurse Practitioner Family; Visit Provider Surgery
PROC: 0DJ08ZZ Inspection of Upper Intestinal Tract, Via Natural or Artificial Opening Endoscopic (ICD-10-PCS; CPT 43235; principal; 2023-03-16 08:35)
DX: R10.9 Unspecified abdominal pain (principal); K29.50 Unspecified chronic gastritis without bleeding; K21.00 Gastro-esophageal reflux disease with esophagitis, without bleeding; F17.210 Nicotine dependence, cigarettes, uncomplicated
CPT/HCPCS: 43239; 83630; 83993; 88305; 88342; J2704; J7030

== ENCOUNTER 2023-05-16 14:12 | Outpatient (CLI) | payer BC, SELFPAY ==
--- NOTE | 2023-05-16 14:17 | CT_ITS ---
WS: [id number] CT ABDOMEN AND PELVIS WITH CONTRAST HISTORY: chronic abdominal pain TECHNIQUE: Imaging performed of the abdomen and pelvis with IV contrast. Single phase imaging of the abdomen. Coronal and sagittal reformats are submitted. All CT scans at [facility] use at [address] one of these dose optimization techniques: automated exposure control; mA and/or kV adjustment per patient size (includes targeted exams where dose is matched to clinical indication); or iterative re construction. IV CONTRAST: Omnipaque 350; 100 mL IV. Oral contrast: Yes. DLP: 453.47 mGy.cm COMPARISON: 12/19/2020 Lower thorax: Lung bases are clear. Heart is normal size. Small hiatal hernia. Liver/biliary system: Normal size with no intrahepatic dilatation. Gallbladder: Normal. No gallstones or wall thickening. No pericholecystic fluid. Pancreas: Normal size pancreas and pancreatic duct. No adjacent inflammation. Spleen: Normal size spleen. No mass or infarct. Adrenal glands: Normal. Right kidney: Normal. Left kidney: Normal. Aorta: Normal. Lymphadenopathy: None. Free fluid: None. GI tract: Normal stomach. No small bowel obstruction or wall thickening. No strictures. There is foca l mild small bowel wall thickening in the LEFT abdomen which could very well be an area of peristalsi s. There is no obstructive pattern. Normal appendix. Normal terminal ileum. No colon obstruction. Abdominal wall: Very tiny abdominal wall hernia containing fat only. Pelvis: No free fluid or adenopathy within the pelvis. Bones: Unremarkable. IMPRESSION: 1. No acute abdominal or pelvic abnormalities. 2. No evidence for colitis. No small bowel strictures. 3. No adenopathy or free fluid.
[2023-05-16] MEDS: iohexol 350 mg/mL 500 mL Btl (per mL) PO (15:10)
[2023-05-16] MEDS: iohexol 350 mg/mL 500 mL Btl (per mL) IV (15:23)
== END 2023-05-16 14:13 | disposition home or self-care (01) ==
LOC: RAD 14:13
PROVIDERS: PCP Nurse Practitioner Family; Visit Provider Surgery
DX: R10.9 Unspecified abdominal pain (principal); G89.29 Other chronic pain
CPT/HCPCS: 74177; Q9967

== ENCOUNTER 2023-06-08 09:37 | Day surgery (SDC) | payer BC, SELFPAY ==
[2023-06-08 09:51] VITALS: BMI 31.3
--- NOTE | 2023-06-08 09:51 | W.PM.OPSFHP ---
Same Day Surgery H&P Indication for Procedure/HPI DATE OF PROCEDURE: June 08, 2023 CHIEF COMPLAINT/INDICATIONFOR SURGICAL PROCEDURE: abdominal pain, possible IBD PREOP DIAGNOSIS: chronic abdominal pain PLANNED PROCEDURE: Operation Date: 06/08/23 12:30 Proposed Procedures p 27842 colon G0105 screen colon H risk R10.9 K52.9(Not Applicable) - Jonathan Castle MD Medications/Allergies* Home Medications Medication Instructions Recorded Confirmed Type pantoprazole 40 mg tablet,delayed 40 mg PO DAILY 09/28/21 06/06/23 History release Allergies/Adverse Reactions Allergy/AdvReac Type Severity Reaction Status Date / Time No Known Allergies Allergy Verified 05/24/23 10:49 Pertinent History/Comorbid Conditions* Medical History (Updated 03/10/23 @ 09:05 by Jonathan Castle MD) Urolithiasis History of 2 left-sided stones in 2020 and the second in 2021. The first 1 passed spontaneously and the second required endoscopic laser lithotripsy with temporary stent. No other stones seen on CT scan Left renal stone Surgical History (Updated 03/10/23 @ 08:41 by Jonathan Castle MD) Hx of vasectomy Status post laser lithotripsy of ureteral calculus Family History (Updated 12/22/20 @ 16:05 by Cinthia Bearden LPN) Healthy adult Father Mother Social History Smoking and tobacco/nicotine status: current every day tobacco/nicotine user Alcohol intake: current Alcohol intake frequency: few times a month Substance/Drug Use: never Marital status: Life Partner Current occupational status: employed Pertinent Exam Findings alert, oriented x 3 and clear to auscultation bilaterally Recommendations Surgery/Procedure today Coding Level of Care Code Acute Code for Chg Fwd
[2023-06-08 09:54] VITALS: BP 129/83; PULSE 86; RESP 16; TEMP 36.4; O2SAT 97
--- NOTE | 2023-06-08 09:56 | ANES.PREANE2 ---
Pre-Anesthetic Assessment Height/Weight: Height 1.7 m Weight 90.718 kg Temp Pulse Resp BP Pulse Ox O2 Del Method 97.6 F 86 16 129/83 97 Room Air 06/08/23 09:54 06/08/23 09:54 06/08/23 09:54 06/08/23 09:54 06/08/23 09:54 06/08/23 09:54 Preop Diagnosis: chronic abdominal pain Operation Date: 06/08/23 12:30 Proposed Procedures p [id number] colon G0105 screen colon H risk R10.9 K52.9(Not Applicable) - Jonathan Castle MD Familial anesthetic complications: None Was Beta Rafael taken within 24 hours: N/A Was Clonidine taken within 24 hours: N/A Last intake: Intake Last Liquid Date 06/06/23 Last Liquid Time 23:00 Last Solid Date 06/06/23 Last Solid Time 23:00 Social Tobacco and No alcohol 1 pack(s) per day Exam alert, oriented x 3, clear to auscultation bilaterally and regular rate & rhythm Airway Submandibular: within normal limits Cervical ROM: within normal limits Mallampati: Class III Dentition: full History/ROS No significant history except as noted and No significant complaints Pulmonary None reported CV/HEM Rheumatic fever at 10yo, no heart damage Kidney stones Hepatic None reported GI Gastroesophageal Reflux Disease (Controlled with meds) Metabolic None reported Musc/skel None reported Neuropsych Headache (Migraines) Anesthetic Plan ASA status: 1 Anesthesia: General and MAC Risk of > 500 ml blood loss (7ml/kg in children): No Medications/Allergies Home Medications Medication Instructions Recorded Confirmed Last Taken Type pantoprazole 40 mg tablet,delayed 40 mg PO DAILY 09/28/21 06/08/23 06/08/23 History release Allergies Allergy/AdvReac Type Severity Reaction Status Date / Time No Known Allergies Allergy Verified 05/24/23 10:49 PENDING SALE TO [facility] Anesthesia Medical History Urolithiasis History of 2 left-sided stones in 2020 and the second in 2021. The first 1 passed spontaneously and the second required endoscopic laser lithotripsy with temporary stent. No other stones seen on CT scan Left renal stone Surgical History Hx of vasectomy Status post laser lithotripsy of ureteral calculus Family History Father Healthy adult Mother Healthy adult Social History Smoking and tobacco/nicotine status: current every day tobacco/nicotine user Alcohol intake: current Alcohol intake frequency: few times a month Substance/Drug Use: never Marital status: Life Partner Current occupational status: employed Data Anesthesia Cardiac Studies: No Data to Display
[2023-06-08] MEDS: sodium chloride 0.9% 1,000 ML 30 ML IV (09:59)
[2023-06-08 11:02] VITALS: BP 100/67; PULSE 90; RESP 14; TEMP 36.5; O2SAT 95
[2023-06-08 11:17] VITALS: BP 100/65; PULSE 87; RESP 16; O2SAT 97
[2023-06-08 11:22] VITALS: BP 121/78; PULSE 73; RESP 16; O2SAT 99
--- NOTE | 2023-06-08 20:14 | ANE.PACU2 ---
Inpatient post-anesthesia follow up: Airway intact: Yes Vital signs: Temperature 97.7 F Pulse Rate 73 Respiratory Rate 16 Blood Pressure 121/78 Pulse Oximetry 99 Oxygen Delivery Me thod Room Air Oxygen Flow Rate Fraction of Inspir ed Oxygen Hydration adequate: Yes Nausea and vomiting: No Pain level: 1 Mental status: Baseline
== END 2023-06-08 11:45 | disposition home or self-care (01) ==
PROVIDERS: PCP Nurse Practitioner Family; Visit Provider Surgery
PROC: 0DJD8ZZ Inspection of Lower Intestinal Tract, Via Natural or Artificial Opening Endoscopic (ICD-10-PCS; CPT 45378; principal; 2023-06-08 12:30)
DX: R10.9 Unspecified abdominal pain (principal); G89.29 Other chronic pain; K63.89 Other specified diseases of intestine; F17.200 Nicotine dependence, unspecified, uncomplicated; K21.9 Gastro-esophageal reflux disease without esophagitis
CPT/HCPCS: 45380; 88305; J2704; J7030